=== PATIENT | female | born 1995 | race Two or more races ===

== ENCOUNTER → 2017-07-14 | Outpatient (REF) | payer OTHER | LOC: M SFHCLERA 18:45 | PROVIDERS: ATTEND Physician Assistant | DX: R30.0 Dysuria (principal); N76.0 Acute vaginitis ==

== ENCOUNTER 2018-02-21 05:27 | Inpatient (IN) | payer OTHER ==
[2018-02-21 06:29] LABS: HEMATOCRIT 38.6 % (36.0-47.0); HEMOGLOBIN 13.2 g/dl (12.0-15.5); MEAN CORPUSCULAR HEMOGLOBIN 28.6 pg (27.0-33.0); MEAN CORPUSCULAR HGB CONC 34.2 g/dl (32.0-36.5); MEAN CORPUSCULAR VOLUME 83.5 fl (80.0-96.0); PLATELET COUNT, AUTOMATED 114 10^3/uL (150-450); RED BLOOD COUNT 4.62 10^6/uL (4.00-5.40); RED CELL DISTRIBUTION WIDTH 16.4 % (11.5-14.5); WHITE BLOOD COUNT 6.2 10^3/uL (4.0-10.0)
[2018-02-21] MEDS: LR 1,000 ML IV ×3 (06:35→10:41)
[2018-02-21] MEDS: LR 500 ML IV (06:35)
[2018-02-21] MEDS: BICITRA 30ML SOLN UDC PO (09:03)
[2018-02-21] MEDS ORDERED: NALBUPHINE HCL 10 MG/ML AMP (J2300) IV ×2 (09:36→11:15)
[2018-02-21] MEDS ORDERED: METOCLOPRAMIDE INJ 10MG/2ML VIAL (J2765) IV (09:36)
[2018-02-21] MEDS ORDERED: ONDANSETRON 4MG/2ML VIAL (J2405) IV ×3 (09:36→11:15)
[2018-02-21] MEDS ORDERED: NALOXONE INJ 0.4 MG/1 ML VIAL (J2310) IV ×2 (09:36)
[2018-02-21] MEDS ORDERED: MEASLES,MUMPS,RUBELLA VACCINE INJ (MMR-II) (90707) SC (10:45)
[2018-02-21] MEDS ORDERED: MOM 30ML SUSPENSION UDC PO (10:45)
[2018-02-21] MEDS ORDERED: PROMETHAZINE 25 MG TAB PO (10:45)
[2018-02-21] MEDS ORDERED: RHOGAM 300 MCG (1500 IU) INJ (J2790) IM (10:45)
[2018-02-21] MEDS ORDERED: fentaNYL 100 MCG/2 ML INJECTION (J3010) IV (11:15)
[2018-02-21] MEDS: KETOROLAC 30 MG/ML VIAL (J1885) IV ×2 (15:54→21:21)
[2018-02-21] MEDS: DOCUSATE SODIUM 100 MG CAP PO (21:22)
[2018-02-22] MEDS: KETOROLAC 30 MG/ML VIAL (J1885) IV ×2 (03:53→09:42)
[2018-02-22] MEDS: PERCOCET 5MG/325MG TAB PO ×4 (05:54→21:07)
[2018-02-22 07:11] LABS: HEMOGLOBIN 11.8 g/dl (12.0-15.5); MEAN CORPUSCULAR HEMOGLOBIN 28.9 pg (27.0-33.0); MEAN CORPUSCULAR HGB CONC 33.7 g/dl (32.0-36.5); MEAN CORPUSCULAR VOLUME 85.8 fl (80.0-96.0); PLATELET COUNT, AUTOMATED 114 10^3/uL (150-450); RED BLOOD COUNT 4.08 10^6/uL (4.00-5.40); RED CELL DISTRIBUTION WIDTH 16.3 % (11.5-14.5); WHITE BLOOD COUNT 8.7 10^3/uL (4.0-10.0)
[2018-02-22] MEDS: PRENATAL VITAMINS CHEWABLE TABLET PO (08:09)
[2018-02-22] MEDS: IBUPROFEN 800 MG TAB PO (17:06)
[2018-02-22] MEDS: DOCUSATE SODIUM 100 MG CAP PO (21:07)
[2018-02-22] MEDS ORDERED: MORPHINE 4 MG/ML 1ML VIAL/SYRINGE (J2270) IV (23:45)
[2018-02-23] MEDS: IBUPROFEN 800 MG TAB PO ×2 (01:06→10:19)
[2018-02-23] MEDS: PERCOCET 5MG/325MG TAB PO ×2 (01:06→05:06)
[2018-02-23] MEDS: PRENATAL VITAMINS CHEWABLE TABLET PO (08:55)
== END 2018-02-23 11:22 | disposition home or self-care (01) | DRG 766 ==
LOC: M LDI 05:27 → M OBS 13:16
PROVIDERS: Student in an Organized Health Care Education/Training Program
PROC: 10D00Z1 Extraction of Products of Conception, Low, Open Approach (ICD-10-PCS; principal; 2018-02-21 07:30)
PROC: 0UB70ZZ Excision of Bilateral Fallopian Tubes, Open Approach (ICD-10-PCS; 2018-02-21 07:30)
DX: O34.211 Maternal care for low transverse scar from previous cesarean delivery (principal); Z37.0 Single live birth; Z30.2 Encounter for sterilization; Z3A.39 39 weeks gestation of pregnancy; O69.81X0 Labor and delivery complicated by cord around neck, without compression, not applicable or unspecified